=== PATIENT | female | born 1990 | race Caucasian/White ===

== ENCOUNTER → 2020-09-24 | Outpatient (CLI) | payer OTHER ==
--- NOTE | 2020-09-24 13:59 | ECGEPIP ---
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
== END ==
LOC: M EKG 11:34
PROVIDERS: ATTEND Obstetrics & Gynecology
DX: Z34.93 Encounter for supervision of normal pregnancy, unspecified, third trimester (principal); Z3A.36 36 weeks gestation of pregnancy

== ENCOUNTER 2020-10-20 10:01 | Outpatient (CLI) | payer OTHER ==
[~2020-10-20] VITALS: Ht 157.5 cm; Wt 65.0 kg
[2020-10-20 10:16] VITALS: BP 123/80
[2020-10-20] MEDS ORDERED: TUMS750C5 PO (10:24)
[2020-10-20] MEDS ORDERED: PRENTAB9 PO (10:24)
[2020-10-20] MEDS ORDERED: LR 1,000 ML IV ONE (10:30)
[2020-10-20 10:59] LABS: APPEARANCE, URINE CLEAR (CLEAR); BACTERIA, URINE AUTO NEGATIVE (NEGATIVE); BILIRUBIN, URINE AUTO NEGATIVE (NEGATIVE); BLOOD, URINE BLOOD 2+ (NEGATIVE); COLOR, URINE YELLOW (YELLOW); GLUCOSE, URINE (UA) AUTO NEGATIVE (NEGATIVE); HEMATOCRIT 36.5 % (36.0-47.0); KETONE, URINE AUTO NEGATIVE (NEGATIVE); LEUKOCYTE ESTERASE, URINE AUTO TRACE (NEGATIVE); MEAN CORPUSCULAR HEMOGLOBIN 31.8 pg (27.0-33.0); MEAN CORPUSCULAR HGB CONC 32.9 g/dl (32.0-36.5); MEAN CORPUSCULAR VOLUME 96.8 fl (80.0-96.0); MUCUS, URINE SMALL (NEGATIVE); NITRITE, URINE AUTO NEGATIVE (NEGATIVE); PLATELET COUNT, AUTOMATED 118 10^3/uL (150-450); PROTEIN, URINE AUTO NEGATIVE (NEGATIVE); RBC, URINE AUTO 147 /HPF (0-3); RED BLOOD COUNT 3.77 10^6/uL (4.00-5.40); SPECIFIC GRAVITY URINE AUTO 1.006 (1.002-1.035); SQUAMOUS EPITHELIAL CELL UR AU 0 /HPF (0-6); UROBILINOGEN, URINE AUTO 0.2 mg/dL (0.0-2.0); WBC, URINE AUTO 7 /HPF (0-3)
[2020-10-20] MEDS ORDERED: PERCOCET 5MG/325MG TAB PO ONE (11:15)
[2020-10-20 11:26] LABS: BLOOD UREA NITROGEN 6 MG/DL (7-18); CALCIUM LEVEL 8.4 MG/DL (8.5-10.1); CARBON DIOXIDE LEVEL 19 MEQ/L (21-32); CHLORIDE LEVEL 112 MEQ/L (98-107); CREATININE FOR GFR 0.39 MG/DL (0.55-1.30); GLOMERULAR FILTRATION RATE > 60.0 (>60); GLUCOSE, FASTING 74 MG/DL (70-100); POTASSIUM SERUM 3.9 MEQ/L (3.5-5.1); SODIUM LEVEL 143 MEQ/L (136-145)
--- NOTE | 2020-10-20 11:57 | REP ---
INDICATION: K STONE LEFT SIDE. COMPARISON: None. TECHNIQUE: Urinary tract sonography. FINDINGS: Urinary bladder is empty at the time of scanning.. Renal cortical echogenicity pattern is normal bilaterally and contours are smooth. However, renal medullary tissue is hyperechoic and bilateral nephrocalcinosis is suspected. Question medullary sponge kidney. There is mild hydronephrosis affecting the right kidney and moderate hydronephrosis affecting the left kidney with mild proximal hydroureter is bilaterally. No renal mass lesion is observed. No cyst is seen.. The right kidney measures 11.6 x 5.7 x 5.6 cm. Left renal dimensions are 12.8 x 6.5 x 6.4 cm. Resistive indices in the intralobar arteries origin 0.59 on the right and 0.66 on the left. The left is slightly higher. 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 Bilateral hydronephrosis, left greater than right. Left hydroureter is more prominent than right. Question left ureteral calculus. The Doppler resistive index of the left kidney is a little higher than the right as well.. <Electronically signed by Izaiah Spears > 10/20/20 [id number]
--- NOTE | 2020-10-20 12:01 | REP ---
INDICATION: TERM ASSESSMENT R/OUT OLIG. COMPARISON: None. TECHNIQUE: Limited obstetric sonography. Transabdominal scanning. FINDINGS: Scanning demonstrates a single living intrauterine gestation in the cephalic lie. The placenta is anterior, grade 3 without evidence of previa. Amniotic fluid is subjectively normal. SAMANTHA is normal 15.8 cm. heart rate is recorded at 135 beats per minute. Biophysical profile score is 8 out of a possible 8. SD ratio in the umbilical cord artery by Doppler is normal at 2.40. IMPRESSION: No complication identified. Normal amniotic fluid and biophysical profile. <Electronically signed by Izaiah Spears > 10/20/20 [id number]
--- NOTE | 2020-10-20 15:59 | IPNPDOC ---
Text Note Date of Service The patient was seen on 10/20/20. NOTE Bad table Item Value Date Time Sodium Level 143 MEQ/L 10/20/20 1047 Potassium Level 3.9 MEQ/L 10/20/20 1047 Chloride Level 112 MEQ/L H 10/20/20 1047 Carbon Dioxide Level 19 MEQ/L L 10/20/20 1047 Anion Gap 12 MEQ/L 10/20/20 1047 Blood Urea Nitrogen 6 MG/DL L 10/20/20 1047 Creatinine 0.39 MG/DL L 10/20/20 1047 Glomerular Filtration Rate > 60.0 10/20/20 1047 Fasting Glucose 74 MG/DL 10/20/20 1047 Calcium Level 8.4 MG/DL L 10/20/20 1047 30 YO A1 AT 40.1 WEEKS ACUTE ONSET LEFT FLANK PAIN UNRELENTING NO CONTRACTIONS NO VAGINAL LOSS NO BLEEDING. RISK FACTORS TBI CRANIOTOMY MITRAL VALVE REGURGITATION PAT EXAM ACUTE DISTRESS IN PAIN LEFT UPPER QUADRANT UNRELENTING. PERCUSSION LEFT SIDE TENDER ACUTE SUSPICIOUS FOR KIDNEY STONE. NST CATEGORY 1 STRIP. PLAN OF CARE BPP RENAL US URINE C AND S URINALYSIS PAIN MANAGEMENT DISCHARGE PLAN WILL BE ORDER PAIN MEDS , KEEP HYDRATED STONE DIET F/UP NEPHROLOGY AND GENETICS . DISCHARGED UNDELIVERED. Item Value Date Time White Blood Count 11.0 10^3/uL H 10/20/20 1047 Red Blood Count 3.77 10^6/uL L 10/20/20 1047 Hemoglobin 12.0 g/dl 10/20/20 1047 Hematocrit 36.5 % 10/20/20 1047 Mean Corpuscular Volume 96.8 fl H 10/20/20 1047 Mean Corpuscular Hemoglobin 31.8 pg 10/20/20 1047 Mean Corpuscular Hemoglobin Concent 32.9 g/dl 10/20/20 1047 Red Cell Distribution Width 13.6 % 10/20/20 1047 Platelet Count 118 10^3/uL L 10/20/20 1047 Nucleated Red Blood Cells % (auto) 0.0 % 10/20/20 1047 INDICATION: TERM ASSESSMENT R/OUT OLIG. COMPARISON: None. TECHNIQUE: Limited obstetric sonography. Transabdominal scanning. FINDINGS: Scanning demonstrates a single living intrauterine gestation in the cephalic lie. The placenta is anterior, grade 3 without evidence of previa. Amniotic fluid is subjectively normal. SAMANTHA is normal 15.8 cm. heart rate is recorded at 135 beats per minute. Biophysical profile score is 8 out of a possible 8. SD ratio in the umbilical cord artery by Doppler is normal at 2.40. IMPRESSION: No complication identified. Normal amniotic fluid and biophysical profile. <Electronically signed by Izaiah Spears > 10/20/20 1157INDICATION: K STONE LEFT SIDE. COMPARISON: None. TECHNIQUE: Urinary tract sonography. FINDINGS: Urinary bladder is empty at the time of scanning.. Renal cortical echogenicity pattern is normal bilaterally and contours are smooth. However, renal medullary tissue is hyperechoic and bilateral nephrocalcinosis is suspected. Question medullary sponge kidney. There is mild hydronephrosis affecting the right kidney and moderate hydronephrosis affecting the left kidney with mild proximal hydroureter is bilaterally. No renal mass lesion is observed. No cyst is seen.. The right kidney measures 11.6 x 5.7 x 5.6 cm. Left renal dimensions are 12.8 x 6.5 x 6.4 cm. Resistive indices in the intralobar arteries origin 0.59 on the right and 0.66 on the left. The left is slightly higher. 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 Bilateral hydronephrosis, left greater than right. Left hydroureter is more prominent than right. Question left ureteral calculus. The Doppler resistive index of the left kidney is a little higher than the right as well.. VS,Fishbone, I+O VS, Fishbone, I+O Laboratory Tests 10/20/20 10:47 Vital Signs Date Time Temp Pulse Resp B/P (MAP) Pulse Ox O2 Delivery O2 Flow Rate FiO2 10/20/20 12:21 18 10/20/20 10:16 97.6 105 123/80 (94) 10/20/20 10:10 Room Air Jt Borrego MD Oct 20, 2020 15:44
== END 2020-10-20 14:46 | disposition home or self-care (01) ==
LOC: M LDO 10:01
PROVIDERS: ATTEND Obstetrics & Gynecology
DX: O26.833 Pregnancy related renal disease, third trimester (principal); N13.30 Unspecified hydronephrosis; Z3A.40 40 weeks gestation of pregnancy

== ENCOUNTER 2020-10-20 18:43 | Outpatient (CLI) | payer OTHER ==
[~2020-10-20] VITALS: Ht 157.5 cm; Wt 64.5 kg
[~2020-10-20 18:43] MED LIST: PRENTAB9 PO; TUMS750C5 PO
[2020-10-20 18:53] VITALS: BP 119/78
[2020-10-20] MEDS ORDERED: PROMETHAZINE INJ 25 MG/ML VIAL (J2550) IV ONE (19:30)
[2020-10-20] MEDS ORDERED: LR 800 ML IV ONE (19:30)
[2020-10-20] MEDS ORDERED: MORPHINE 4 MG/ML 1ML VIAL/SYRINGE (J2270) IV ONE (19:30)
--- NOTE | 2020-10-20 19:32 | IPNPDOC ---
Text Note Date of Service The patient was seen on 10/20/20. NOTE 30 yo AT 40 WEEKS DIAGNOSIS KIDNEY STONE LEFT SIDE UNRELENTING PAIN NOT RELIEVED BY ORAL ANALGESICS COUPLED WITH NAUSEA AND VOMITING. RECENT DIAGNOSIS MEDULLARY SPONGE DISEASE . PLANS ARE TO HYDRATE , IV PAIN MEDICATION , ANTI NAUSEA MEDICATION , RECENT BPP 05/29 AND NST CATEGORY 1 STRIP SAFE TO PROCEED . VS,Fishbone, I+O VS, Fishbone, I+O Vital Signs Date Time Temp Pulse Resp B/P (MAP) Pulse Ox O2 Delivery O2 Flow Rate FiO2 10/20/20 18:53 98.0 105 18 119/78 (92) 100 Room Air Jt Borrego MD Oct 20, 2020 19:31
[2020-10-20] MEDS: LR 1,000 ML IV SCH (20:23)
[2020-10-20] MEDS ORDERED: PERCOCET 5MG/325MG TAB PO PRN ×2 (23:45)
[2020-10-21] MEDS: LR 1,000 ML IV SCH (03:44)
--- NOTE | 2020-10-21 06:24 | IPNPDOC ---
Text Note Date of Service The patient was seen on 10/21/20. NOTE patient readmitted for pain control re kidney stone . after iv pain Meds pain under control and discharged . booked for IOL 10/26/2020 VS,Paula, I+O VS, Fishbone, I+O Vital Signs Date Time Temp Pulse Resp B/P (MAP) Pulse Ox O2 Delivery O2 Flow Rate FiO2 10/21/20 01:00 18 10/20/20 18:53 98.0 105 119/78 (92) 100 Room Air I&O- Last 24 Hours up to 6 AM 10/21/20 06:00 Output Total 550 ml Balance -550 ml Jt Borrego MD Oct 21, 2020 06:23
== END 2020-10-21 06:31 | disposition home or self-care (01) ==
LOC: M LDO 18:43
PROVIDERS: ATTEND Obstetrics & Gynecology
DX: O26.833 Pregnancy related renal disease, third trimester (principal); N20.0 Calculus of kidney; Z3A.40 40 weeks gestation of pregnancy
CPT/HCPCS: 59025; 76775; 76815; 76819; 76820; 80048; 81001; 85027; 87086; 96361; 96374; 96375; G0378; G0463; J2270

== ENCOUNTER 2020-10-26 17:10 | Inpatient (IN) | payer OTHER ==
[~2020-10-26] VITALS: Ht 157.5 cm; Wt 64.5 kg
[2020-10-26] MEDS ORDERED: LACTATED RINGER'S 1000 ML IV STA (17:24)
[2020-10-26] MEDS ORDERED: UNIS25TA3 PO (17:31)
[2020-10-26] MEDS ORDERED: OXYC1TAB23 PO (17:32)
[2020-10-26 17:36] VITALS: BP 108/74
[2020-10-26] MEDS ORDERED: miSOPROStol 50 MCG 1/2 TAB (S0191) PO ONE ×2 (19:00→23:45)
[2020-10-26 19:09] LABS: HEMATOCRIT 38.3 % (36.0-47.0); HEMOGLOBIN 12.7 g/dl (12.0-15.5); MEAN CORPUSCULAR HEMOGLOBIN 32.5 pg (27.0-33.0); MEAN CORPUSCULAR HGB CONC 33.2 g/dl (32.0-36.5); PLATELET COUNT, AUTOMATED 122 10^3/uL (150-450); RED BLOOD COUNT 3.91 10^6/uL (4.00-5.40); WHITE BLOOD COUNT 11.2 10^3/uL (4.0-10.0)
--- NOTE | 2020-10-26 20:15 | HPEPDOC ---
Obstetrical History & Physical General Date of Admission Oct 26, 2020 at 17:10 Primary Care Physician: Jt Borrego MD History of Present Illness ADMITTED AT 41.1 WEEKS FOR IOL . RISK FACTORS TBI CRANIOTOMY, MITRAL VALVE REGURGITATION, KIDNY STONE , MEDULLARY SPONGE KIDNEY DISEASE Chief Complaint: Contractions, term, Occational cramping Age: 30 : 2 Term: 1 Pre-term: 0 Abortions: 1 Livin Care Care: Good Care Dating Final EDC: Oct 19, 2020 Final EDC for Daily Update: Oct 19, 2020 Final EDC by: LMP LMP: Jan 13, 2020 1st Trimester Date: Mar 25, 2020 Weeks + Days: 11.0 Estimated Date of Confinement: Oct 19, 2020 EGA at Admission: 41.1 Antepartum Course Diagnos(e)s POST TERM FOR IOL Height (inches): 62 Pre- weight (lbs.): 124.2 Admission Weight (lbs.): 142.0 Change in Weight (lbs.): 18 Past Medical History Past Obstetrical History : Past Obstetrical History: Multigravida Date of Delivery: Aug 06, 2019 Gestation: 40.4 Type of Delivery: Spontaneous Vaginal Del. 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 History: Spontaneous , Other Past Medical History Medical History TBI CRANIOTOMY MITRAL VALVE REGURGITATION MEDULLARY SPONGE KIDNEY DISEASE KIDNEY STONE LEFT Surgical History: Rhinoplasty, Skin graft, [place] teeth, Other (CRANIOTOMY H AND D LT BREAST ABSCESS WISDOM TEETH) Family History Significant Family History: Renal disease Family History FATHER HAS KIDNEY DISEASE Social History Marital Status: Family situation: Spouse/partner home Psychosocial History: No pertinent psych hx * Smoker: non-smoker Alcohol: Denies Drugs: denies Abuse Violence Screening Have you been hit/kicked/slapp: No Have you been sexually assault: No Imunizations Tdap status: current Influenza Status: current Allergies Coded Allergies: No Known Allergies (Unverified , 10/20/20) Medications Scheduled Doxylamine Succinate (Unisom Sleep Aid) 25 Mg Tablet, 1 TAB PO QPM No.137/Iron/Folic Acd ( Vitamin Tablet) 1 Each Tablet, 1 TAB PO DAILY Scheduled PRN Calcium Carbonate (Tums) 300 Mg Tab.chew, 1 TAB PO BID PRN for HEARTBURN Miscellaneous Medications Oxycodone HCl/Acetaminophen (Oxycodone-Acetaminophen 5-325) 1 Each Tablet, 2 TAB PO Physical Examination Physical Examination GENERAL: Alert and oriented times three. BREAST: . ABDOMEN: Gravid and non-tender to touch. FETUS: Is vertex (VTX) by sterile vaginal examination (SVE), fetus is vertex (VTX) by Kurt. HEART RATE: Regular rate and rhythm. LUNGS: Clear to auscultation (CTA). EXTREMITIES: No edema. No clonus. Deep tendon reflexes (DTRs)NORMAL Vital Signs/I&O Vital Signs Date Time Temp Pulse Resp B/P (MAP) Pulse Ox O2 Delivery O2 Flow Rate FiO2 10/26/20 17:36 98.3 91 18 108/74 (85) 98 Room Air Laboratory Data 24H LABS Laboratory Tests 2 10/26/20 17:17: Serology Scanned Report Hepatitis B Testing CBC/BMP Item Value Date Time White Blood Count 11.2 10^3/uL H 10/26/200 Red Blood Count 3.91 10^6/uL L 10/26/201839 Hemoglobin 12.7 g/dl 10/26/20 184 Hematocrit 38.3 % 10/26/201839 Mean Corpuscular Volume 98.0 fl H 10/26/200 Mean Corpuscular Hemoglobin 32.5 pg 10/26/201839 Mean Corpuscular Hemoglobin Concent 33.2 g/dl 10/26/201839 Red Cell Distribution Width 13.3 % 10/26/201839 Platelet Count 122 10^3/uL L 10/26/201839 Nucleated Red Blood Cells % (auto) 0.0 % 10/26/201839 Urine Culture: Other (GRAVEL FROM K STONE) Pertinent Laboratoy Data Blood Type: O- RBC Antibody Screen: Negative HIV: Negative Hepatitis B: Negative Rapid Plasma Reagin: Nonreactive Rubella: Immune Varicella: Immune Chlamydia/Gonorrhea: Negative Group B Streptococcus: Negative Cystic Fibrosis: Negative Anatomy Ultrasound Placenta Location: Anterior Normal Anatomy: Yes Placenta Previa: No Steroid Therapy Steroid Therapy: No Vaginal Examination Dilation: 1cm Effacement: 50% Station: -3 Cervical Consistency: Soft Cervical Position: Posterior Presentation: Cephalic presentation Assessment Heart Rate (FHR): 140 Variability: Moderate Accelerations: Positive Decelerations: None Tocometer Contractions: Yes Frequency: greater than 10 min/apart Duration: less than 60 seconds Strength: palpated as mild Assessment/Plan Assessment 30-year-old (G)2 para (P)1 at 41,1weeks by 11-week ultrasound. Presents to Labor and Delivery IOL Plan Admit and orient. Feather Shaper and consent. Diet: TOMASA Group B Streptococcus (GBS) [negative]. Labs and intravenous (IV) per unit protocol. Counseled on Pitocin and induction of labor (IOL). Lactated Ringers (LR): [id number] mL, then at 125 mL/hr.PRE EPIDURAL Anticipate [normal spontaneous delivery ()]. C-S as appropriate. Labor and Delivery Counseling REVIEWED IOL AND RISKS VAGINAL DELIVERY. IOL WITH CYTOTEC , PITOCIN, ADRIAN BULB RISK OF HEMORRHAGE INFECTION PERFORATION RUPTURE TACHYCARDIA NRFHT REQUIRE EMG CS RISK REPAIR VAGINA BOWEL BLADDER CERVIX EMERGENCY CS FOR OR MATERNAL REASONS WILL BE DISCUSSED BEFORE CONTINUING. REMOTE RISK LACERATIONS REMOTE BLOOD TRANSFUSION REMOTE HYSTERECTOMY EXPRESSED UNDERSTANDING SAFE TO PROCEED ALL QUESTIONS ANSWERED 30 MINUTE DISCUSSION. PLAN TO START CYTOTEC Jt Borrego MD Oct 26, 2020 19:57
[2020-10-26 20:23] VITALS: BP 103/68
[2020-10-27] VITALS (40 sets, daily range): BP systolic 89–150; BP diastolic 49–83
[2020-10-27] MEDS ORDERED: miSOPROStol 50 MCG 1/2 TAB (S0191) PO ONE (06:00)
--- NOTE | 2020-10-27 08:58 | IPNPDOC ---
Obstetrical Progress Note Date of Service Oct 27, 2020 Subjective To room for assessment. patient is comfortable in bed. starting to feel some cramping pain. FHT" 130, Mod angela,+accels, -Decels---Cat I tracing TOCO: 2-12/29 SVE: 2/50/-2, ADRIAN PLACED with 80/80 a/p Latent labor. cat I tracing. continue cervical ripening. recheck in 4-6 hrs or sooner as needed. Objective Vital Signs Date Time Temp Pulse Resp B/P (MAP) Pulse Ox O2 Delivery O2 Flow Rate FiO2 10/27/20 06:38 81 16 91/57 (68) 10/27/20 05:58 Room Air 10/27/20 05:02 97.4 10/26/20 17:36 98 MEGHAN FAUST MD Oct 27, 2020 08:58
[2020-10-27] MEDS ORDERED: PROMETHAZINE INJ 25 MG/ML VIAL (J2550) IM ONE (09:00)
[2020-10-27] MEDS ORDERED: BUTORPHANOL 2 MG/ML INJ (J0595) IV ONE (09:00)
[2020-10-27] MEDS ORDERED: PROMETHAZINE INJ 25 MG/ML VIAL (J2550) IV ONE (09:30)
[2020-10-27] MEDS ORDERED: LR 1,000 ML IV SCH (13:22)
[2020-10-27] MEDS ORDERED: OXYTOCIN DRIP 30 UNITS in IV 1 EA IV SCH ×2 (13:30→17:53)
--- NOTE | 2020-10-27 14:34 | IPNPDOC ---
Obstetrical Progress Note Date of Service Oct 27, 2020 Subjective to room for assessment. patient is feeling more pain with contractions now and is asking if she can get epidural FHT: 140, MOD VARIABILITY, +ACCELS, -Decels---cat I tracing TOCO: 3-01/29, PIT AT 4 SVE: 5/50/-2. ADRIAN REMOVED A/P LATENT LABOR. CAT I TRACING. CONTINUE INDUCTIONS PER L&D PROTOCOL. CAN GET EPIDURAL NOW. Objective Vital Signs Date Time Temp Pulse Resp B/P (MAP) Pulse Ox O2 Delivery O2 Flow Rate FiO2 10/27/20 11:31 97.5 81 16 89/51 (64) 10/27/20 05:58 Room Air 10/26/20 17:36 98 MEGHAN FAUST MD Oct 27, 2020 14:34
[2020-10-27] MEDS ORDERED: FENTANYL 2MCG/ML ROPIVACAINE 0.2% IN 0.9% NACL 100ML IVBAG As Ordered ONE (14:47)
[2020-10-27] MEDS ORDERED: ePHEDrine SULFATE 25 MG/5 ML(5MG/ML) SYRINGE IV PRN (16:45)
[2020-10-27] MEDS ORDERED: EPIDURAL/PCA KEYS XX PRN (16:45)
[2020-10-27] MEDS ORDERED: EPIDURAL COMMENT XX SCH (16:45)
[2020-10-27] MEDS ORDERED: diphenhydrAMINE 50MG/ML VIAL (J1200) IV PRN (16:45)
[2020-10-27] MEDS ORDERED: FENTANYL/ROPIVACAINE/NACL BAG 100 ML EPIDURAL SCH (16:45)
[2020-10-27] MEDS ORDERED: NALOXONE INJ 0.4MG/1ML VIAL (J2310 PER 1MG) IV PRN (16:45)
[2020-10-27] MEDS ORDERED: ONDANSETRON 4MG/2ML VIAL IV PRN (16:45)
[2020-10-27] MEDS ORDERED: LACTATED RINGER'S 1000 ML IV PRN (16:45)
[2020-10-27] MEDS ORDERED: REFRIGERATOR IV KEYS XX PRN (16:45)
[2020-10-27] MEDS ORDERED: MOM 30ML SUSPENSION UDC PO PRN (18:00)
[2020-10-27] MEDS ORDERED: ANUSOL HC CREAM 30GM TOP PRN (18:00)
[2020-10-27] MEDS ORDERED: ACETAMINOPHEN 500 MG TAB PO PRN (18:00)
[2020-10-27] MEDS ORDERED: BENZOCAINE 20% HEMORRHOIDAL OINTMENT 28GM TUBE TOP PRN (18:00)
[2020-10-27] MEDS ORDERED: RHOGAM 300 MCG (1500 IU) INJ (J2790) IM SCH (18:00)
--- NOTE | 2020-10-27 18:15 | DNPDOC ---
[facility] Delivery Note Delivery Note DATE OF DELIVERY: 10/27/2020 PREDELIVERY DIAGNOSIS: 41-1/7 weeks' gestation and labor. POST DELIVERY DIAGNOSIS: Delivered. PROCEDURE: Spontaneous vaginal delivery PELTS SKINNER: Dr. Meghan FAUST ANESTHESIA: Epidural ESTIMATED BLOOD LOSS: 100 mL. FINDINGS: 7 pound 1 ounce (3180g) MALE , Score 9/9, no nuchal cord . DELIVERY SUMMARY: Patient is a 30-year-old 2 now para 2001 who was admitted to labor and delivery for induction. Patient progressed to C/C/+2 and with good maternal effort delivered a viable . The infants head delivered OA. The head was allowed to spontaneously restitute MINGO. No nuchal cord upon delivery of the head. Right anterior shoulder delivered with gentle downward traction followed by posterior shoulder and corpus without difficulty. Normal 3-vessel cord clamped x 2 and cut by FOB after 1 min of delayed cord clamping. Spontaneous cry noted. Infant placed on maternal abdomen for [id number]. Cord blood obtained. Placenta delivered spontaneously and inspection of the placenta demonstrated that it was intact. The cord insertion appeared normal. The uterus was cleared of all clots and debris. Fundal massage until firm.30 units of Pitocin administered per protocol and the patient required no additional uterotonics. Inspection of cervix, perineum, and vaginal wall revealed no tears. Repeat uterine examination noted uterine tone to be adequate and firm. Mom and infant stayed in L&D in hemodynamic stable condition upon my departure. MEGHAN FAUST MD Oct 27, 2020 18:14
[2020-10-27] MEDS: IBUPROFEN 800 MG TAB PO PRN (22:51)
[2020-10-28 06:00] VITALS: BP 116/77
--- NOTE | 2020-10-28 06:17 | IPNPDOC ---
Progress Note Date of Service: Oct 28, 2020 Day#: 1 Progress Note SUBJECT: Carol is a 30-year-old 2 now Para 2002 status post uncomp licated spontaneous vaginal delivery at 41-1/7 weeks of 7 pound 1 ounce (3180g) MALE infant, Score 9/9, no nuchal cord , doing well day # 1. She has been ambulating, voiding spontaneously without issue and tolerating regular diet. Breast feeding without issue. Reports lochia is minimal. denies any s/s of anemia, infection or pre e OBJECTIVE: VITAL SIGNS: Within normal limits, afebrile. Alert and oriented times three. normal work of breathing. Heart rate: Regular rate and rhythm Abdomen: Fundus firm at U-2. Soft, NTTP. ASSESSMENT: Caorl is a 30-year-old 2 now Para 2002 status post uncomplicated spontaneous vaginal delivery at 41-1/7 weeks of 7 pound 1 ounce (3180g) MALE infant, Score 9/9, no nuchal cord , doing well day # 1. . Vitals within normal limits, afebrile, hemodynamically stable with no evidence of infection. PLAN: 1. Discharge to home tomorrow. 2. Tylenol and Motrin for pain. 3. Encourage breast feeding and ambulation. 4. vasectomy for contraception 5. Routine PP visit in 6 weeks in clinic. 6. Discussed return precautions at length. VS, I&O, 24H, Fishbone Vital Signs/I&O Vital Signs Date Time Temp Pulse Resp B/P (MAP) Pulse Ox O2 Delivery O2 Flow Rate FiO2 10/27/20 20:45 98.3 92 18 119/68 (85) 10/27/20 05:58 Room Air 10/26/20 17:36 98 I&O- Last 24 Hours up to 6 AM 10/28/20 06:00 Intake Total 4993.1 ml Output Total 200 ml Balance 4793.1 ml MEGHAN FAUST MD Oct 28, 2020 06:17
[2020-10-28] MEDS: DOCUSATE SODIUM 100MG CAPSULE PO PRN (08:51)
[2020-10-28] MEDS: PRENATAL VITAMINS CHEWABLE TABLET PO SCH (08:51)
[2020-10-28] MEDS: FERROUS SULFATE 325MG TAB PO SCH (08:51)
[2020-10-28] MEDS: IBUPROFEN 800 MG TAB PO PRN (15:51)
[2020-10-28 18:00] VITALS: BP 120/81
[2020-10-29 06:00] VITALS: BP 115/66
[2020-10-29] MEDS ORDERED: ACET-683 PO (07:22)
[2020-10-29] MEDS ORDERED: IBUP80TA PO (07:22)
--- NOTE | 2020-10-29 07:30 | DS.PDOC ---
Discharge Summary General Date of Admission Oct 26, 2020 at 17:10 Date of Discharge Oct 29, 2020 Discharge Summary HOSPITAL COURSE: Ms. Wesley is a 30 yo G2 now P2 who underwent an uncomplicated on 27Oct2019 after being admitted for an IOL for late term . Her course has been unremarkable. On her day of discharge she met all appropriate discharge criteria. She was ambulating, voiding, tolerating a regular diet, and had minimal lochia. DISCHARGE MEDICATIONS: Please see below. ALLERGIES: Please see below. PHYSICAL EXAMINATION ON DISCHARGE: VITAL SIGNS: Please see below. GENERAL: AAOX3, NAD, pleasant and conversant ABDOMINAL EXAMINATION: Fundus firm at U-2. No fundal tenderness EXTREMITIES: No edema PSYCHIATRIC EXAMINATION: Affect appropriate LABORATORY DATA: Please see below. ACTIVITY: Pelvic rest for 6 weeks DIET: Regular diet DISCHARGE PLAN: Discharge home DISPOSITION: Discharge home on 29Oct2020. DISCHARGE INSTRUCTIONS: 1. Pelvic rest for 6 weeks ITEMS TO FOLLOWUP ON ON OUTPATIENT: 1. appointment in 6-8 weeks DISCHARGE CONDITION: Stable. TIME SPENT ON DISCHARGE: Greater than 20 minutes. Vital Signs/I&Os Vital Signs Date Time Temp Pulse Resp B/P (MAP) Pulse Ox O2 Delivery O2 Flow Rate FiO2 10/28/20 18:00 98.3 78 17 120/81 (94) 100 Room Air Discharge Medications Scheduled Doxylamine Succinate (Unisom Sleep Aid) 25 Mg Tablet, 1 TAB PO QPM, (Reported) No.137/Iron/Folic Acd ( Vitamin Tablet) 1 Each Tablet, 1 TAB PO DAILY, (Reported) Scheduled PRN Acetaminophen (Acetaminophen) 500 Mg Tablet, 1,000 MG PO Q6HP PRN for PAIN LEVEL 6-10 Calcium Carbonate (Tums) 300 Mg Tab.chew, 1 TAB PO BID PRN for HEARTBURN, (Reported) Ibuprofen (Ibuprofen) 800 Mg Tablet, 800 MG PO Q8HP PRN for PAIN LEVEL 6-10 Allergies Coded Allergies: No Known Allergies (Unverified , 10/20/20) KENYA AGUILAR DO Oct 29, 2020 07:30
[2020-10-29] MEDS: PRENATAL VITAMINS CHEWABLE TABLET PO SCH (08:30)
[2020-10-29] MEDS: FERROUS SULFATE 325MG TAB PO SCH (08:30)
[2020-10-29] MEDS: DOCUSATE SODIUM 100MG CAPSULE PO PRN (08:34)
[2020-10-29] MEDS ORDERED: SERTRALINE HCL 25 MG TABLET PO SCH (09:00)
--- NOTE | 2020-10-30 12:15 | IPN ---
PROGRESS NOTE DATE: 10/28/2020 This patient and requested circumcision of her male infant. After discussing risks and benefits of circumcision, the medical and the nonmedical indications, the penile block and aftercare; expressed understanding of penile block, aftercare, and bleeding. Signed the consent form. All questions were answered, 20 minute discussion. We await the clearance by the aviation electronic warfare operator.
== END 2020-10-29 13:02 | disposition home or self-care (01) | DRG 807 ==
LOC: M LDI 17:10 → M OBS 10-27 20:40
PROVIDERS: ADMIT Obstetrics & Gynecology; ATTEND Obstetrics & Gynecology
PROC: 3E0P7GC Introduction of Other Therapeutic Substance into Female Reproductive, Via Natural or Artificial Opening (ICD-10-PCS; 2020-10-26)
PROC: 10E0XZZ Delivery of Products of Conception, External Approach (ICD-10-PCS; principal; 2020-10-27)
DX: O48.0 Post-term pregnancy (principal); Z37.0 Single live birth; Z3A.41 41 weeks gestation of pregnancy; O63.0 Prolonged first stage (of labor)

== ENCOUNTER 2020-12-21 21:10 | Emergency (ER) | payer OTHER ==
[~2020-12-21] VITALS: Ht 157.5 cm; Wt 56.2 kg
[~2020-12-21 21:10] MED LIST changes: +ACET-683 PO; +IBUP80TA PO; +OXYC1TAB23 PO; +UNIS25TA3 PO
[2020-12-21] MEDS ORDERED: ZOLO25TA PO (21:30)
[2020-12-21 22:20] LABS: BASO % 0.5 % (0.0-1.0); EOS # 0.1 10^3/uL (0.0-0.5); EOS % 1.2 % (0.0-3.0); HEMATOCRIT 38.8 % (36.0-47.0); HEMOGLOBIN 12.4 g/dl (12.0-15.5); LYMPH # 1.7 10^3/uL (1.5-5.0); LYMPH % 28.6 % (24.0-44.0); MEAN CORPUSCULAR HEMOGLOBIN 30.6 pg (27.0-33.0); MEAN CORPUSCULAR VOLUME 95.8 fl (80.0-96.0); MONO # 0.5 10^3/uL (0.0-0.8); MONO % 7.7 % (2.0-8.0); NEUTROPHILS # 3.6 10^3/uL (1.5-8.5); NEUTROPHILS % 61.7 % (36.0-66.0); PLATELET COUNT, AUTOMATED 173 10^3/uL (150-450); RED BLOOD COUNT 4.05 10^6/uL (4.00-5.40); WHITE BLOOD COUNT 5.9 10^3/uL (4.0-10.0)
--- NOTE | 2020-12-21 22:39 | REPVR ---
PROCEDURE INFORMATION: Exam: XR Chest Exam date and time: 12/21/2020 10:27 PM Age: 30 years old Clinical indication: Chest pain; Additional info: Palpitations TECHNIQUE: Imaging protocol: XR of the chest Views: 2 views. COMPARISON: No relevant prior studies available. FINDINGS: Lungs: Unremarkable. No consolidation. No pulmonary edema. Pleural spaces: Unremarkable. No pleural effusion. No pneumothorax. Heart/Mediastinum: Unremarkable. No cardiomegaly. Bones/joints: Unremarkable. IMPRESSION: No acute findings. Electronically signed by: Noah Ozuna On 12/21/2020 22:39:40 PM
[2020-12-21 22:42] LABS: INR 1.05; PROTHROMBIN TIME 13.9 SECONDS (12.5-14.3)
[2020-12-21 22:43] LABS: PARTIAL THROMBOPLASTIN TIME 29.2 SECONDS (24.2-38.5)
[2020-12-21 23:07] LABS: ALT/SGPT 54 U/L (12-78); BILIRUBIN,DIRECT 0.1 MG/DL (0.0-0.2); BILIRUBIN,TOTAL 0.3 MG/DL (0.2-1.0); BLOOD UREA NITROGEN 19 MG/DL (7-18); CARBON DIOXIDE LEVEL 30 MEQ/L (21-32); CHLORIDE LEVEL 108 MEQ/L (98-107); CK-MB VALUE MASS < 1.0 NG/ML (<3.6); CPK CREATINE PHOSPHOKINASE 59 U/L (26-192); CREATININE FOR GFR 0.74 MG/DL (0.55-1.30); FREE T4 0.85 NG/DL (0.76-1.46); GLOMERULAR FILTRATION RATE > 60.0 (>60); GLUCOSE, FASTING 83 MG/DL (70-100); MAGNESIUM LEVEL 1.7 MG/DL (1.8-2.4); MB/CK RELATIVE INDEX 1.69 (< OR =4); PHOSPHORUS LEVEL 4.1 MG/DL (2.5-4.9); POTASSIUM SERUM 3.7 MEQ/L (3.5-5.1); SODIUM LEVEL 142 MEQ/L (136-145); TOTAL PROTEIN 6.8 GM/DL (6.4-8.2); TROPONIN I < 0.02 NG/ML (< 0.10)
[2020-12-21] MEDS ORDERED: ISOVUE-370 76% 100ML VIAL As Ordered ONE (23:42)
--- NOTE | 2020-12-22 00:19 | REPVR ---
PROCEDURE INFORMATION: Exam: CT Abdomen And Pelvis Without And With Contrast Exam date and time: 12/21/2020 11:34 PM Age: 30 years old Clinical indication: Hematuria; Additional info: Urogram for hematuria TECHNIQUE: Imaging protocol: Computed tomography of the abdomen and pelvis without and with contrast. Radiation optimization: All CT scans at this facility use at least one of these dose optimization techniques: automated exposure control; mA and/or kV adjustment per patient size (includes targeted exams where dose is matched to clinical indication); or iterative reconstruction. Contrast material: ISO; Contrast volume: 100 ml; Contrast route: INTRAVENOUS (IV); COMPARISON: 1. US BPP W/O NON STRESS TEST 10/20/2020 11:38 AM 2. CR Chest, 2 view PA, Lat 12/21/2020 10:19:47 PM 3. RENAL US 10/20/2020 11:28:54 AM FINDINGS: Lungs: The imaged portions of the lung bases are clear. The lungs were not fully imaged. Heart: No cardiomegaly or pericardial effusion. Liver: Unremarkable. No liver lesion is identified. The contour of the liver is smooth. No hepatomegaly is noted. Gallbladder and bile ducts: The gallbladder is contracted. No calcified gallstones are seen. No dilation of the bile ducts is noted. No calcified stones are seen in the common bile duct. Pancreas: Normal. No dilation of the main pancreatic duct is noted. There is no inflammatory fat stranding around the pancreas to suggest acute pancreatitis. Spleen: Normal. No splenomegaly is noted. Adrenal glands: Normal. No adrenal mass is noted. Kidneys and ureters: There are multiple bilateral renal calculi. There are two 3 mm calculi located [id number] in the right proximal ureter (image 41 of the sagittal series 403) and moderate proximal right hydroureteronephrosis. No calculi are noted in the left ureter. There are no wedge-shaped areas of low attenuation in the kidneys to suggest pyelonephritis. There is no renal abscess or perinephric fluid collection. Stomach and bowel: The stomach and small bowel are unremarkable. There is no evidence for a bowel obstruction, diverticulosis, diverticulitis, colitis, perforated viscus, pneumatosis intestinalis, intussusception, or volvulus. There is a moderate amount of formed stool in the colon. Appendix: Normal. There is no evidence for appendicitis. Intraperitoneal space: No free air. No ascites. No abscess. Retroperitoneal space: No fluid collection. No mass. Vasculature: The abdominal aorta is patent, normal in caliber, and there is no dissection. The iliac arteries, common femoral arteries, renal arteries, celiac artery, superior mesenteric artery, and inferior mesenteric artery are patent. The iliac veins, inferior vena cava, hepatic veins, portal veins, splenic vein, superior mesenteric vein, inferior mesenteric vein, and renal veins are patent. Lymph nodes: No enlarged lymph nodes. Urinary bladder: The distended urinary bladder is normal in appearance. No stones or masses are seen in the bladder. Reproductive: The uterus is retroverted. The ovaries are unremarkable. Bones/joints: There is no fracture or dislocation. No suspicious osteolytic or osteoblastic lesion. Soft tissues: Unremarkable. No hernia. No soft tissue fluid collection. IMPRESSION: 1. Two 3 mm calculi located [id number] in the right proximal ureter and moderate proximal right hydroureteronephrosis. 2. Bilateral nephrolithiasis. Electronically signed by: Noah Ozuna On 12/22/2020 00:19:59 AM
[2020-12-22] MEDS ORDERED: KETO10TAB PO (01:22)
[2020-12-22] MEDS ORDERED: ONDA4TAB6 PO (01:22)
[2020-12-22 01:49] VITALS: BP 121/69
--- NOTE | 2020-12-22 14:23 | ECGEPIP ---
[facility] - ED Test Date: 2020-12-21 Pat Name: YONI PRESTON Department: Room: - Gender: Female Sort Operations Supervisor: DAREN : 1990 Requested By: KAMAR Higginbotham Order Number: [id number] Reading MD: Jenny Stuart Measurements Intervals [place] Rate: 62 P: 0 CT: 112 QRS: 59 QRSD: 94 T: 20 QT: 412 QTc: 418 Interpretive Statements Sinus rhythm with marked sinus arrhythmia Nonspecific T wave abnormality decreased rate 09/24/20 Electronically Signed on 12-22-2020 14:23:16 EST by Jenny Stuart
== END 2020-12-22 01:51 | disposition home or self-care (01) ==
LOC: M ED 21:10
DX: R00.2 Palpitations (principal); N20.1 Calculus of ureter; Z79.899 Other long term (current) drug therapy; Z87.891 Personal history of nicotine dependence
CPT/HCPCS: 36415; 71046; 74178; 80048; 80076; 81001; 82550; 82553; 83735; 84100; 84439; 84443; 84484; 85025; 85610; 85730; 93005; 93041; 94760; 99285; Q9967

== ENCOUNTER 2021-06-10 20:00 | Emergency (ER) | payer OTHER ==
[~2021-06-10] VITALS: Ht 157.5 cm; Wt 58.2 kg
[~2021-06-10 20:00] MED LIST changes: +KETO10TAB PO; +ONDA4TAB6 PO; +ZOLO25TA PO
[2021-06-10 20:01] VITALS: BP 103/65
[2021-06-10] MEDS ORDERED: CITA10TA5 PO (20:55)
[2021-06-10] MEDS ORDERED: POTA10808 PO (20:55)
== END 2021-06-10 22:22 | disposition left against medical advice (07) ==
LOC: M ED 20:00
DX: Z53.29 Procedure and treatment not carried out because of patient's decision for other reasons (principal)

== ENCOUNTER 2022-12-28 06:48 | Emergency (ER) | payer OTHER ==
[~2022-12-28] VITALS: Ht 157.5 cm; Wt 62.2 kg
[~2022-12-28 06:48] MED LIST changes: +CITA10TA7 PO; +POTA10808 PO
[2022-12-28] MEDS ORDERED: BUPR300T92 PO (06:53)
[2022-12-28] MEDS ORDERED: CLON0.5T17 PO (06:53)
[2022-12-28] MEDS ORDERED: SERT-141 PO (06:53)
[2022-12-28] MEDS ORDERED: NS 1,000 ML IV ONE (07:10)
[2022-12-28] MEDS ORDERED: ONDANSETRON 4MG 2ML VIAL IV ONE (07:15)
[2022-12-28 07:40] LABS: BASO % 0.5 % (0.0-1.0); EOS # 0.1 10^3/uL (0.0-0.5); EOS % 0.9 % (0.0-3.0); HEMATOCRIT 42.7 % (36.0-47.0); HEMOGLOBIN 13.9 g/dl (12.0-15.5); LYMPH # 0.7 10^3/uL (1.5-5.0); LYMPH % 8.7 % (24.0-44.0); MEAN CORPUSCULAR HEMOGLOBIN 31.4 pg (27.0-33.0); MEAN CORPUSCULAR HGB CONC 32.6 g/dl (32.0-36.5); MEAN CORPUSCULAR VOLUME 96.6 fl (80.0-96.0); MONO # 0.8 10^3/uL (0.0-0.8); MONO % 9.7 % (2.0-8.0); NEUTROPHILS # 6.4 10^3/uL (1.5-8.5); NEUTROPHILS % 79.7 % (36.0-66.0); PLATELET COUNT, AUTOMATED 204 10^3/uL (150-450); RED BLOOD COUNT 4.42 10^6/uL (4.00-5.40)
[2022-12-28 08:17] LABS: CK-MB VALUE MASS < 1.0 NG/ML (<3.6)
[2022-12-28 08:18] LABS: LIPASE 30 U/L (12-53)
[2022-12-28 08:20] LABS: ALBUMIN 4.1 G/DL (3.2-5.2); ALKALINE PHOSPHATASE 59 U/L (46-116); ALT/SGPT 14 U/L (7.0-40); AST/SGOT 19 U/L (<34); BILIRUBIN,TOTAL 0.3 MG/DL (0.3-1.2); BLOOD UREA NITROGEN 10 MG/DL (9-23); CALCIUM LEVEL 9.2 MG/DL (8.5-10.1); CARBON DIOXIDE LEVEL 26 MMOL/L (20-31); CHLORIDE LEVEL 106 MMOL/L (98-107); CPK CREATINE PHOSPHOKINASE 46 U/L (34-145); CREATININE FOR GFR 0.55 MG/DL (0.55-1.30); GLOMERULAR FILTRATION RATE > 60.0 (>60); GLUCOSE, FASTING 93 MG/DL (60-100); MB/CK RELATIVE INDEX 2.17 (< OR =4); SODIUM LEVEL 140 MMOL/L (136-145); TOTAL PROTEIN 6.7 G/DL (5.7-8.2)
[2022-12-28 09:31] VITALS: BP 99/66
== END 2022-12-28 09:35 | disposition home or self-care (01) ==
LOC: M ED 06:48
DX: K52.9 Noninfective gastroenteritis and colitis, unspecified (principal); E86.0 Dehydration; Z79.899 Other long term (current) drug therapy; Z87.442 Personal history of urinary calculi
CPT/HCPCS: 80053; 82550; 82553; 83690; 84484; 84702; 85025; 93005; 96374; 99284; J2405

== ENCOUNTER 2023-07-03 14:06 | Emergency (ER) | payer OTHER ==
[~2023-07-03] VITALS: Ht 157.5 cm; Wt 71.1 kg
[~2023-07-03 14:06] MED LIST changes: +BUPR300T92 PO; +CLON0.5T17 PO; +SERT-141 PO
[2023-07-03] MEDS ORDERED: DOXY-443 PO (16:34)
[2023-07-03] MEDS ORDERED: DOXYCYCLINE HYCLATE 100MG TABLET PO ONE (16:35)
[2023-07-03 16:41] VITALS: BP 109/67; TEMP 98.4; O2SAT 98
== END 2023-07-03 16:43 | disposition home or self-care (01) ==
LOC: M ED 14:06
DX: L05.91 Pilonidal cyst without abscess (principal)

== ENCOUNTER 2023-09-02 13:42 | Emergency (ER) | payer OTHER ==
[~2023-09-02] VITALS: Ht 157.5 cm; Wt 70.5 kg
[~2023-09-02 13:42] MED LIST changes: +DOXY-443 PO
[2023-09-02 14:57] LABS: BASO % 0.5 % (0.0-1.0); EOS # 0.1 10^3/uL (0.0-0.5); EOS % 1.1 % (0.0-3.0); HEMATOCRIT 40.1 % (36.0-47.0); HEMOGLOBIN 13.3 g/dl (12.0-15.5); LYMPH # 1.6 10^3/uL (1.5-5.0); LYMPH % 19.6 % (24.0-44.0); MEAN CORPUSCULAR HEMOGLOBIN 31.5 pg (27.0-33.0); MEAN CORPUSCULAR HGB CONC 33.2 g/dl (32.0-36.5); MONO # 0.6 10^3/uL (0.0-0.8); NEUTROPHILS # 5.7 10^3/uL (1.5-8.5); NEUTROPHILS % 71.5 % (36.0-66.0); PLATELET COUNT, AUTOMATED 239 10^3/uL (150-450); RED BLOOD COUNT 4.22 10^6/uL (4.00-5.40)
[2023-09-02 15:22] LABS: CK-MB VALUE MASS < 1.0 NG/ML (<3.6); HCG, SERUM QUALITATIVE NEGATIVE (NEGATIVE)
[2023-09-02 15:24] LABS: ALKALINE PHOSPHATASE 68 U/L (46-116); ALT/SGPT 13 U/L (7.0-40); AST/SGOT 17 U/L (<34); BILIRUBIN,DIRECT < 0.1 MG/DL (<0.4); BILIRUBIN,TOTAL 0.3 MG/DL (0.3-1.2); BLOOD UREA NITROGEN 14 MG/DL (9-23); CALCIUM LEVEL 9.8 MG/DL (8.5-10.1); CARBON DIOXIDE LEVEL 26 MMOL/L (20-31); CHLORIDE LEVEL 107 MMOL/L (98-107); CREATININE FOR GFR 0.52 MG/DL (0.55-1.30); GLOMERULAR FILTRATION RATE > 60.0 (>60); GLUCOSE, FASTING 97 MG/DL (60-100); MAGNESIUM LEVEL 1.8 MG/DL (1.8-2.4); PHOSPHORUS LEVEL 4.2 MG/DL (2.5-4.9); POTASSIUM SERUM 4.4 MMOL/L (3.5-5.1); SODIUM LEVEL 144 MMOL/L (136-145); TOTAL PROTEIN 6.9 G/DL (5.7-8.2)
[2023-09-02 15:26] LABS: FREE T4 0.98 NG/DL (0.89-1.76); THYROID STIMULATING HORMONE 1.549 uIU/ML (0.55-4.78)
[2023-09-02 15:27] LABS: CPK CREATINE PHOSPHOKINASE 61 U/L (34-145); MB/CK RELATIVE INDEX 1.63 (< OR =4)
[2023-09-02] MEDS ORDERED: ISOVUE-370 76% 100ML VIAL As Ordered ONE (15:50)
[2023-09-02 16:32] LABS: CK-MB VALUE MASS < 1.0 NG/ML (<3.6)
[2023-09-02 16:35] LABS: CPK CREATINE PHOSPHOKINASE 50 U/L (34-145)
[2023-09-02] MEDS ORDERED: clonazePAM 0.5 MG TAB PO ONE (16:35)
[2023-09-02 17:00] VITALS: BP 106/72; TEMP 97.1; O2SAT 98
== END 2023-09-02 17:10 | disposition home or self-care (01) ==
LOC: M ED 13:42
DX: R00.2 Palpitations (principal); F41.0 Panic disorder [episodic paroxysmal anxiety]; F43.10 Post-traumatic stress disorder, unspecified; F32.A Depression, unspecified; Z79.2 Long term (current) use of antibiotics
CPT/HCPCS: 36415; 71275; 80048; 80076; 82550; 82553; 83735; 84100; 84439; 84443; 84484; 84703; 85025; 85379; 93005; 93041; 94760; 99285; Q9967

== ENCOUNTER → 2024-01-01 | Outpatient (REF) | payer OTHER ==
[2024-01-01 19:10] LABS: AMORPHOUS SEDIMENT SMALL (NEGATIVE); APPEARANCE, URINE HAZY (CLEAR); BACTERIA, URINE AUTO NEGATIVE (NEGATIVE); BILIRUBIN, URINE AUTO NEGATIVE (NEGATIVE); BLOOD, URINE BLOOD NEGATIVE (NEGATIVE); COLOR, URINE YELLOW (YELLOW); GLUCOSE, URINE (UA) AUTO NEGATIVE (NEGATIVE); KETONE, URINE AUTO NEGATIVE (NEGATIVE); LEUKOCYTE ESTERASE, URINE AUTO NEGATIVE (NEGATIVE); MUCUS, URINE SMALL (NEGATIVE); NITRITE, URINE AUTO NEGATIVE (NEGATIVE); PROTEIN, URINE AUTO NEGATIVE (NEGATIVE); RBC, URINE AUTO 0 /HPF (0-3); SPECIFIC GRAVITY URINE AUTO 1.019 (1.002-1.035); SQUAMOUS EPITHELIAL CELL UR AU 0 /HPF (0-6); UROBILINOGEN, URINE AUTO 0.2 mg/dL (0.0-2.0); WBC, URINE AUTO 1 /HPF (0-3)
== END ==
LOC: M LAB REF 17:54
PROVIDERS: ATTEND Urology
DX: N39.3 Stress incontinence (female) (male) (principal)

== ENCOUNTER 2024-05-08 06:03 | Day surgery (SDC) | payer OTHER ==
[~2024-05-08] VITALS: Ht 157.5 cm; Wt 64.4 kg
[~2024-05-08 06:03] MED LIST changes: +BUPR-597 PO; -BUPR300T92 PO; +DOXY-323 PO; -DOXY-443 PO; +HYDR-3363 PO; +ONDA-282 PO; -ONDA4TAB6 PO; +PROP20TA72 PO; +SERT50TA29 PO; +TRET0.1G10; +TRIA1CRE5; +VITA100093 PO; +[UNRECOGNIZED DRUG - OTHER]
[2024-05-08] MEDS: METHYLENE BLUE 0.5% (5MG/ML) 10 ML AMP (PROVAYBLUE) As Ordered ONE (07:14)
[2024-05-08] MEDS: ESTROGENS VAGINAL CREAM 30GM As Ordered ONE (07:14)
[2024-05-08] MEDS ORDERED: propofoL 200 MG/20 ML VIAL As Ordered ONE (07:16)
[2024-05-08] MEDS ORDERED: LIDOCAINE 2% 100MG/5ML SDV (FOR ANES.) As Ordered ONE (07:16)
[2024-05-08] MEDS ORDERED: MIDAZOLAM INJ 2MG/2ML VIAL As Ordered ONE (07:16)
[2024-05-08] MEDS ORDERED: HYDROmorphone HCL 2MG/ML 1ML VIAL As Ordered ONE (07:16)
[2024-05-08] MEDS: ceFAZolin SOD 2 GM in IV 1 EA IV ONE (07:50)
[2024-05-08] MEDS: SCOPOLAMINE 1MG TRANSDERMAL PATCH As Ordered ONE (08:00)
[2024-05-08] MEDS ORDERED: ACETAMINOPHEN 1000MG 100ML IV BAG As Ordered ONE (08:22)
[2024-05-08] MEDS ORDERED: KETOROLAC 60MG 2ML VIAL As Ordered ONE (08:22)
[2024-05-08] MEDS ORDERED: ONDANSETRON 4MG 2ML VIAL As Ordered ONE (08:22)
[2024-05-08] MEDS ORDERED: PHENYLephrine 500MCG 5ML (100MCG/ML) SYRINGE As Ordered ONE (09:04)
[2024-05-08] MEDS ORDERED: GLYCOPYRROLATE INJ 0.2 MG/ML 2 ML VIAL As Ordered ONE (09:10)
[2024-05-08] MEDS ORDERED: ePHEDrine SULFATE 25 MG/5 ML(5MG/ML) SYRINGE As Ordered ONE (09:10)
[2024-05-08] MEDS ORDERED: CEPH500C PO (09:51)
[2024-05-08] MEDS ORDERED: HYDR-3713 PO (09:51)
[2024-05-08] MEDS ORDERED: HYDROMORPHONE HCL 0.5 MG/ 0.5 ML SYRINGE IV PRN (10:00)
[2024-05-08] MEDS: ONDANSETRON 4MG 2ML VIAL IV PRN (10:05)
[2024-05-08 13:00] VITALS: BP 90/52; TEMP 97.4; O2SAT 94
[2024-05-08] MEDS: METOCLOPRAMIDE INJ 10MG/2ML VIAL IV ONE (13:30)
== END 2024-05-08 11:35 | disposition home or self-care (01) ==
LOC: M SDC 06:03
PROVIDERS: ATTEND Urology
DX: N81.10 Cystocele, unspecified (principal); N81.6 Rectocele; Q61.5 Medullary cystic kidney; F41.9 Anxiety disorder, unspecified; F43.10 Post-traumatic stress disorder, unspecified; Z79.899 Other long term (current) drug therapy
CPT/HCPCS: 57260; 81025; 88302; C1769; J0131; J0665; J0690; J1100; J1170; J1596; J1885; J2250; J2371; J2405

== ENCOUNTER 2024-05-10 16:24 | Emergency (ER) | payer OTHER ==
[~2024-05-10] VITALS: Ht 157.5 cm; Wt 65.9 kg
[~2024-05-10 16:24] MED LIST changes: +CEPH500C PO; +HYDR-3713 PO
[2024-05-10] MEDS: FAMOTIDINE 20MG/2ML VIAL IVP ONE (18:00)
[2024-05-10] MEDS: NS 1,000 ML IV ONE (18:37)
[2024-05-10] MEDS: methylPREDNISolone 125MG 2ML VIAL IV ONE (18:39)
[2024-05-10] MEDS: diphenhydrAMINE 50MG/ML VIAL IV ONE (18:40)
[2024-05-10] MEDS ORDERED: PRED20TA PO (20:01)
[2024-05-10] MEDS ORDERED: CIPR-249 PO (20:01)
[2024-05-10] MEDS ORDERED: TRAM50TA2 PO (20:01)
[2024-05-10] MEDS: CIPROFLOXACIN 500MG TABLET PO ONE (20:05)
[2024-05-10 20:16] VITALS: BP 117/71; TEMP 97.6; O2SAT 97
== END 2024-05-10 20:25 | disposition home or self-care (01) ==
LOC: M ED 16:24
DX: T78.40XA Allergy, unspecified, initial encounter (principal); X58.XXXA Exposure to other specified factors, initial encounter; Y92.89 Other specified places as the place of occurrence of the external cause; Y93.89 Activity, other specified; Y99.8 Other external cause status; Z87.892 Personal history of anaphylaxis; Z79.899 Other long term (current) drug therapy
CPT/HCPCS: 96374; 96375; 99284; J1200; J2919

== ENCOUNTER 2024-07-05 12:50 | Emergency (ER) | payer OTHER ==
[~2024-07-05] VITALS: Ht 157.5 cm; Wt 66.7 kg
[~2024-07-05 12:50] MED LIST changes: +CIPR-249 PO; +PRED20TA PO; +TRAM50TA2 PO
[2024-07-05] MEDS ORDERED: DOXY100C3 (13:03)
[2024-07-05] MEDS: CLINDAMYCIN 150MG CAPSULE PO ONE (15:55)
[2024-07-05 16:07] LABS: BASO % 0.5 % (0.0-1.0); EOS # 0.1 10^3/uL (0.0-0.5); EOS % 0.8 % (0.0-3.0); HEMATOCRIT 39.4 % (36.0-47.0); HEMOGLOBIN 13.1 g/dl (12.0-15.5); LYMPH # 1.6 10^3/uL (1.5-5.0); LYMPH % 19.7 % (24.0-44.0); MEAN CORPUSCULAR HEMOGLOBIN 31.3 pg (27.0-33.0); MEAN CORPUSCULAR HGB CONC 33.2 g/dl (32.0-36.5); MONO # 0.8 10^3/uL (0.0-0.8); MONO % 9.8 % (2.0-8.0); NEUTROPHILS # 5.5 10^3/uL (1.5-8.5); NEUTROPHILS % 69.1 % (36.0-66.0); PLATELET COUNT, AUTOMATED 224 10^3/uL (150-450); RED BLOOD COUNT 4.19 10^6/uL (4.00-5.40)
[2024-07-05] MEDS ORDERED: CLEO300C2 PO (16:18)
[2024-07-05 16:32] VITALS: BP 111/70; TEMP 97; O2SAT 98
[2024-07-05] MEDS: IBUPROFEN 600MG TAB PO ONE (16:54)
== END 2024-07-05 16:55 | disposition home or self-care (01) ==
LOC: M ED 12:50
DX: N61.1 Abscess of the breast and nipple (principal); Z79.899 Other long term (current) drug therapy; Z88.2 Allergy status to sulfonamides; Z88.5 Allergy status to narcotic agent

== ENCOUNTER → 2024-09-24 | Outpatient (REF) | payer OTHER ==
[~2024-09-24] MED LIST changes: +CLEO300C2 PO; -DOXY-323 PO; +DOXY-441 PO; +DOXY100C3; -POTA10808 PO; +POTA10809 PO
[2024-09-26 12:23] LABS: BVAB 2 NEGATIVE (NEGATIVE); CANDIDA ALBICANS NAA NOT DETECTED (NOT DETECTED); CANDIDA GLABRATA NAA NOT DETECTED (NOT DETECTED); TRICH VAG BY NAA NOT DETECTED (NOT DETECTED)
[2024-09-26 12:52] LABS: CHLAMYDIA TRACHOMATIS NAA NOT DETECTED (NOT DETECTED); Neisseria gonorrhoeae NAA NOT DETECTED (NOT DETECTED)
== END ==
LOC: M SMT 14:33
PROVIDERS: ATTEND Urology
DX: R10.2 Pelvic and perineal pain (principal)